=== PATIENT | male | born 1965 | race Caucasian/White ===

== ENCOUNTER → 2017-04-09 | Outpatient (REF) ==
--- NOTE | 2017-04-09 15:19 | DI ---
EXAM: Two views of the chest. History: Pre employment screening chest radiograph Comparison: Chest radiograph 08/28/2015 Findings: Heart size is normal. No focal consolidation. No appreciable pleural fluid and no pneumo thorax. No acute osseous abnormalities. A few calcified granulomas again seen within the thorax. Impression: No acute cardiopulmonary process. No change compared to the prior study.
== END ==
LOC: RAD 14:26
DX: Z02.89 Encounter for other administrative examinations (principal)

== ENCOUNTER 2017-05-21 07:21 | Outpatient (CLI) ==
--- NOTE | 2017-05-21 08:21 | US ---
EXAM: Abdominal ultrasound limited HISTORY: Nausea and vomiting COMPARISON: None TECHNIQUE: Sonographic and limited Doppler evaluation of the right upper quadrant was performed. FINDINGS: The liver is increased in echogenicity and measures 15.3 cm. The portal vein is patent. The gallbladder demonstrates no stones or sludge. The gallbladder wall measures 0.2 cm in thickness without pericholecystic fluid. Common bile duct is unremarkable and measures 0.4 cm in diameter. The pancreas is unremarkable in appearance. The right kidney measures 10.5 x 4.4 x 5.1 cm with cortical thickness of 0.7 cm. IMPRESSION: 1. Increased echogenicity of the liver suggestive of hepatic steatosis. 2. No additional sonographic abnormality to account for patient's symptoms.
== END 2017-05-21 07:22 | disposition home or self-care (01) ==
LOC: RAD 07:21
PROVIDERS: ATTEND Family Medicine
DX: R11.2 Nausea with vomiting, unspecified (principal)

== ENCOUNTER 2018-05-22 11:15 | Outpatient (CLI) ==
--- NOTE | 2018-05-22 13:12 | DI ---
EXAM: Two views of the left hip. History: Left hip pain. Findings: No acute fracture or dislocation. No abnormal calcifications or radiopaque foreign bodies . The left hip joint space is preserved. Impression: Unremarkable exam
== END 2018-05-22 11:16 | disposition home or self-care (01) ==
LOC: RAD 11:15
PROVIDERS: ATTEND Family Medicine
DX: M25.552 Pain in left hip (principal)